=== PATIENT | female | born 1960 | race Two or more races ===

== ENCOUNTER → 2025-02-20 | Emergency (ER) | payer OTHER ==
[~2025-02-20] VITALS: Ht 154.9 cm; Wt 64.9 kg
[~2025-02-20] MED LIST: AMOX-CLAV 875-1 EACH PO; KETO10TA2 PO; KETOROLAC TROMETHAMINE 30 MG VIAL IM ONE; KETOROLAC TROMETHAMINE 30 MG VIAL ONE; PEPCID AC20 MG PO
== END | disposition home or self-care (01) ==
LOC: ER 12:02
DX: S80.212A Abrasion, left knee, initial encounter (principal); S60.811A Abrasion of right wrist, initial encounter; W19.XXXA Unspecified fall, initial encounter; Y93.89 Activity, other specified; Y92.89 Other specified places as the place of occurrence of the external cause; Y99.9 Unspecified external cause status
CPT/HCPCS: 96372; 99282; J1885